=== PATIENT | male | born 1990 | race Caucasian/White ===

== ENCOUNTER 2020-08-08 14:47 | Emergency (ER) | payer SELFPAY ==
[~2020-08-08] VITALS: Ht 172.7 cm; Wt 73.0 kg
[~2020-08-08 14:47] MED LIST: COLON CLEANSE; [UNRECOGNIZED DRUG - OTHER]; [UNRECOGNIZED DRUG - REMARK]
[2020-08-08] MEDS ORDERED: SODIUM CHLORIDE 0.9% 1,000 ML IV ONE ×2 (16:00→16:45)
[2020-08-08 16:13] LABS: BASOPHILS % 0.3 % (0.0-2.0); EOSINOPHILS % 1.4 % (0.0-5.0); HEMATOCRIT. 48.2 % (42.0-52.0); HEMOGLOBIN. 15.7 g/dL (14.0-18.0); LYMPHOCYTES % 18.1 % (20.0-50.0); MEAN CORPUSCULAR HEMOGLOBIN 29.4 pg (28.0-32.0); MEAN CORPUSCULAR VOLUME 90.1 fL (80.0-94.0); MONOCYTES % 6.2 % (2.0-8.0); RED BLOOD CELL COUNT 5.35 mill/uL (4.7-6.1); RED CELL DISTRIBUTION WIDTH 14.7 % (11.6-14.6)
[2020-08-08 16:16] LABS: CHLORIDE 104 mEq/L (98-107)
[2020-08-08 16:33] LABS: ETHANOL BLOOD 337 mg/dL
[2020-08-08 16:36] LABS: MEAN PLATELET VOLUME 8.6 fl (7.4-10.4); PLATELET 257 x1000/uL (130-400)
[2020-08-08 17:56] LABS: CLARITY URINE CLEAR (CLEAR); COLOR URINE YELLOW (YELLOW); KETONES URINE NEGATIVE (NEGATIVE); LEUKOCYTE ESTERASE URINE NEGATIVE (NEGATIVE); NITRITE URINE NEGATIVE (NEGATIVE); OCCULT BLOOD URINE NEGATIVE (NEGATIVE); PH URINE 5.5 (4.5-8.0); PROTEIN URINE NEGATIVE (NEGATIVE); SPECIFIC GRAVITY URINE 1.007 (1.005-1.030); UROBILINOGEN URINE 0.2 E.U./dL (0.2-1.0)
[2020-08-08 18:40] LABS: *AMPHETAMINES SCREEN URINE PRESUMTIVE POSITIVE (NEGATIVE); *BARBITURATES SCREEN URINE NEGATIVE (NEGATIVE); *BENZODIAZEPINES SCREEN URINE NEGATIVE (NEGATIVE)
[2020-08-08 18:41] LABS: *COCAINE SCREEN URINE NEGATIVE (NEGATIVE); CANNABINOID URINE SCREEN PRESUMTIVE POSITIVE (NEGATIVE); METHADONE URINE SCREEN NEGATIVE (NEGATIVE); OPIATES URINE SCREEN NEGATIVE (NEGATIVE); PHENCYCLIDINE URINE SCREEN NEGATIVE (NEGATIVE)
[2020-08-09 00:15] VITALS: BP 112/78
== END 2020-08-09 00:15 | disposition home or self-care (01) ==
LOC: ER 14:47
DX: F10.129 Alcohol abuse with intoxication, unspecified (principal); T40.5X1A Poisoning by cocaine, accidental (unintentional), initial encounter; F15.10 Other stimulant abuse, uncomplicated; Y90.8 Blood alcohol level of 240 mg/100 ml or more; F12.10 Cannabis abuse, uncomplicated; Y92.89 Other specified places as the place of occurrence of the external cause
CPT/HCPCS: 36415; 70450; 80053; 80305; 80320; 81003; 85025; 93005; 96360; 96361; 99285; J7030; G0480

== ENCOUNTER 2025-05-10 12:55 | Emergency (ER) | payer SELFPAY ==
[~2025-05-10] VITALS: Ht 180.3 cm; Wt 93.0 kg
[2025-05-10 12:59] VITALS: O2SAT 99
[2025-05-10 13:56] LABS: BASOPHILS % 0.2 % (0.0-2.0); EOSINOPHILS % 6.4 % (0.0-5.0); HEMATOCRIT. 35.3 % (42.0-52.0); HEMOGLOBIN. 11.7 g/dL (14.0-18.0); LYMPHOCYTES % 17.8 % (20.0-50.0); MEAN PLATELET VOLUME 7.3 fl (7.4-10.4); MONOCYTES % 5.5 % (2.0-8.0); NEUTROPHILS % 70.1 % (40.0-76.0); PLATELET 369 x1000/uL (130-400); RED BLOOD CELL COUNT 3.85 mill/uL (4.7-6.1); RED CELL DISTRIBUTION WIDTH 13.9 % (11.6-14.6)
[2025-05-10 14:09] LABS: CREATININE 0.8 mg/dL (0.6-1.3); ETHANOL BLOOD 265 mg/dL (<10); UREA NITROGEN BLOOD 9 mg/dL (9-23)
[2025-05-10 16:30] VITALS: BP 116/74; PULSE 95; RESP 19; TEMP 36.8; O2SAT 98
== END 2025-05-10 16:47 | disposition home or self-care (01) ==
LOC: ER 12:55
DX: F10.129 Alcohol abuse with intoxication, unspecified (principal); F12.90 Cannabis use, unspecified, uncomplicated; F15.90 Other stimulant use, unspecified, uncomplicated; Z55.6 Problems related to health literacy; Z79.899 Other long term (current) drug therapy; Y90.8 Blood alcohol level of 240 mg/100 ml or more
CPT/HCPCS: 36415; 80048; 80307; 80320; 80329; 82962; 85025; 99284; A4606; G0480